=== PATIENT | male | born 1980 | race Caucasian/White ===

== ENCOUNTER 2019-03-17 11:18 | Emergency (ER) | payer OTHER ==
[2019-03-17 11:24] VITALS: BP 126/90; PULSE 84; TEMP 98.4; BMI 34.7
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
[2019-03-17] MEDS ORDERED: TETRACAINE 0.5% OPHTH SOLN 2 ML BOTTLE ONE (11:31)
[2019-03-17] MEDS ORDERED: FLUORESCEIN NA 1 EA STRIP ONE (11:31)
[2019-03-17] MEDS ORDERED: FLUORESCEIN NA 1 EA STRIP OD ONE (11:42)
[2019-03-17] MEDS ORDERED: ERYTHROMYCIN 0.5% OPHTHALMIC OINTMENT 3.5 GM TUBE ONE (11:43)
[2019-03-17] MEDS ORDERED: TETRACAINE 0.5% OPHTH SOLN 2 ML BOTTLE OD ONE (11:43)
[2019-03-17] MEDS ORDERED: ERYTHROMYCIN 0.5% OPHTHALMIC OINTMENT 3.5 GM TUBE OD ONE (11:49)
== END 2019-03-17 12:00 | disposition home or self-care (01) ==
LOC: FER 11:18
DX: S05.01XA Injury of conjunctiva and corneal abrasion without foreign body, right eye, initial encounter (principal); X58.XXXA Exposure to other specified factors, initial encounter; Y93.89 Activity, other specified; Y92.410 Unspecified street and highway as the place of occurrence of the external cause; Y99.0 Civilian activity done for income or pay
CPT/HCPCS: 99282-25